=== PATIENT | female | born 1950 | race Caucasian/White ===

== ENCOUNTER → 2016-10-26 | Day surgery (SDC) | payer MEDICARE ==
[~2016-10-26] VITALS: Ht 160 cm; Wt 81.9 kg
[~2016-10-26] MED LIST: ACETAMINOPHEN/HYDROcodone 325 MG/5 MG TAB PO PRN; ASPI1TAB69 PO; BENEPOW8 PO; BENETAB PO; BIOT50005 PO; BUPIVACAINE HCL PF 0.5% 30 ML VIAL ONE; CEPH-459 PO; CYCL1TAB29 PO; DO NOT ADM ANY ANTICOAGULANT DRUGS XX PRN; GABA100C4 PO; GLIP1TAB60 PO; HYDR-3535 PO; INSULIN HUMAN REGULAR 1,000 UNITS/10 ML VIAL SQ PRN; LABETALOL HCL 100 MG/20 ML VIAL ONE; LACTATED RINGER'S 1000 ML IV SCH; LANS30CA PO; LIDOCAINE HCL 2% 50 ML VIAL ONE; LOVA20TA PO; LUTE20CA PO; MEPERIDINE HCL 50 MG/ML VIAL IM PRN; METF500T PO; METOPROLOL TARTRATE 25 MG TAB PO PRN; MIDAZOLAM HCL 2 MG/2 ML VIAL ONE; NORC5TAB PO; ONDANSETRON HCL 4 MG/2 ML VIAL IV PUSH ONE; PROPOFOL 200 MG/20 ML AMP IV ONE; QUIN20TA4 PO; REST30CA PO; SENN8.6T8 PO; SODIUM CHLORID 0.9% 500 ML IV SCH; ZOFR4TAB PO
[2016-10-26 07:18] VITALS: BP 174/89; PULSE 97; RESP 18; TEMP 97.3; O2SAT 97
[2016-10-26 07:19] LABS: AUTOMATED NEUTROPHIL # 6.6 TH/MM3 (1.8-7.7); BASOPHIL # 0.1 TH/MM3 (0-0.2); BASOPHIL % 0.8 % (0.0-2.0); EOSINOPHIL # 0.3 TH/MM3 (0-0.4); EOSINOPHIL % 2.7 % (0.0-4.0); HEMATOCRIT 35.7 % (35.0-46.0); HEMO FLAGS DIFF FINAL; LYMPH % 30.8 % (9.0-44.0); LYMPHOCYTE # 3.5 TH/MM3 (1.0-4.8); MEAN CELL VOLUME 86.3 FL (80.0-100.0); MEAN CORPUSCULAR HEMOGLOBIN 28.4 PG (27.0-34.0); MONO % 6.7 % (0.0-8.0); PLATELET COUNT 263 TH/MM3 (150-450); RED BLOOD COUNT 4.14 MIL/MM3 (4.00-5.30); RED CELL DISTRIBUTION WIDTH 14.2 % (11.6-17.2); WHITE BLOOD COUNT 11.2 TH/MM3 (4.0-11.0)
--- NOTE | 2016-10-26 07:27 | EKG ---
Date Performed: 10/26/2016 Time Performed: 07:04:14 PTAGE: 66 years EKG: Sinus rhythm LOW QRS VOLTAGE IN PRECORDIAL LEADS BORDERLINE ECG COMPARED TO PRIOR ELECTROCARDIOGRAM, Rate has slo wed. PREVIOUS TRACING : 03/30/2014 00.15 DOCTOR: Michael Larios Interpretating Date/Time 10/26/2016 07:27:19
[2016-10-26] MEDS: ceFAZolin 1,000 MG/NS 100 ML IV SCH ×4 (08:22→08:24)
--- NOTE | 2016-10-26 10:11 | MP ---
cc: RUSSELL SOLORZANO III, M.D. DATE OF OPERATION 10/26/2016 PREOPERATIVE DIAGNOSIS Left volar wrist mass. PROCEDURE Left wrist mass excisional biopsy. SURGEON Russell Solorzano III, MD PROCEDURE The patient was brought to the operating room and placed supine on the operating room table. After the correct site and side of the surgery were verified by members of each team in the room multiple times including the patient and myself and after adequate IV sedation had been achieved, the left upper extremity was prepped and draped in the traditional sterile surgical fashion. After an adequate time-out was performed, a 50/50 mixture of 2% plain lidocaine and 0.5% plain Marcaine was infiltrated in the skin and subcutaneous tissue in the wrist and the limb was exsanguinated using a gentle Davon wrap and then a highly placed, well-padded axillary tourniquet was inflated to 200 mmHg for a total of 16 minutes. A transversely oriented incision was made in the volar aspect of the wrist and carried down through the skin and subcutaneous tissue overlying the mass. Blunt dissection was then performed carefully. The radial artery was identified. The mass was clear and was filled with a colorless jelly-like fluid. It was then bluntly dissected free from all the surrounding tissue, all the while protecting the radial artery. This was traced down to a single stalk, into the wrist and amputated at its base which was also cauterized with the bipolar electrocautery and the mass was passed off the field as a specimen. There were no other anatomic abnormalities. Thorough irrigation was performed several times with a liter's worth of saline. The axillary tourniquet released and the hand and all the fingers on the right became immediately soft and warm and had brisk capillary refill of less than 2 seconds. The radial artery was then visualized; it became soft, full and pulsatile and there was no evidence of any active bleeding, only minor oozing at the skin edges which was easily controlled with the bipolar. Thorough irrigation was performed again and deep subcutaneous tissues were reapproximated using 4-0 Vicryl suture and then the skin edges reapproximated using 4-0 Monocryl subcuticular stitch which will be removed in the office. The hand and arm were thoroughly cleansed and dried. Mastisol and Steri-Strips were applied. A well-padded, well molded bulky volar immobilizing splint was made, short-arm length. The patient was awakened from anesthesia and transported to the Post-Anesthesia Care Unit awake and in stable condition at the end of the case. Sponge, needle and instrument counts were correct at the end of the case as reported by the nurses in the room. MD JOSEFINA Bautista III/ROBBY /9:43 AM /9:59 AM
[2016-10-26 10:45] VITALS: BP 116/62; PULSE 82; RESP 18; TEMP 97.1; O2SAT 98
== END | disposition home or self-care (01) ==
LOC: HSDC 06:33
PROVIDERS: ATTEND Orthopaedic Surgery Hand Surgery
DX: R22.32 Localized swelling, mass and lump, left upper limb (principal); I10 Essential (primary) hypertension; R94.31 Abnormal electrocardiogram [ECG] [EKG]
CPT/HCPCS: 01810; 25073; 85025; 88304; 93005; J0690; J2250; J2405; J3010; J7120; 88305